=== PATIENT | female | born 1970 | race Hispanic/Latino ===

== ENCOUNTER 2021-01-17 06:35 | Emergency (ER) | payer BC ==
[~2021-01-17] VITALS: Ht 162.6 cm; Wt 97.5 kg
[2021-01-17 06:37] VITALS: BP 166/83
[2021-01-17 08:24] LABS: ABG BASE EXCESS 1.7 mmol/L (-2.0-3.0); ABG HCO3 23.9 mmol/L (21.0-28.0); ABG OXYGEN SATURATION 98.7 % (95.0-99.0); ABG PCO2 31 mmHg (32-45)
[2021-01-17 08:48] LABS: BASOPHILS % (AUTO) 0.5 % (0.0-5.0); EOSINOPHILS % (AUTO) 0.3 % (0.0-8.0); HEMATOCRIT 41.1 % (36-48); LYMPHOCYTES % (AUTO) 6.7 % (21.0-51.0); MEAN CORPUSCULAR HEMOGLOBIN 30.4 pg (27.0-33.0); MEAN CORPUSCULAR HGB CONC 33.1 g/dL (32.0-36.0); MEAN CORPUSCULAR VOLUME 91.7 fL (79-99); MONOCYTES % (AUTO) 9.5 % (3.0-13.0); NEUTROPHILS % (AUTO) 82.5 % (40.0-77.0); PLATELET COUNT (AUTO) 207 K/uL (130-400); RED BLOOD CELL COUNT(AUTO) 4.48 MIL/uL (4.00-5.50); RED CELL DISTRIBUTION WIDTH 12.2 % (11.0-15.5); WHITE BLOOD COUNT (AUTO) 6.1 K/uL (4.8-10.8)
[2021-01-17] MEDS ORDERED: AZIT500T2 PO (09:07)
[2021-01-17] MEDS ORDERED: ASPI-1012 PO (09:07)
[2021-01-17] MEDS ORDERED: BUDE8.435 NS (09:07)
[2021-01-17] MEDS ORDERED: ALBUHFA IH (09:07)
[2021-01-17] MEDS ORDERED: PRED20TA3 PO (09:07)
[2021-01-17 09:09] LABS: INR 1.04 (0.85-1.15); PROTHROMBIN TIME 11.3 SEC (9.6-11.6)
[2021-01-17 09:10] LABS: PARTIAL THROMBOPLASTIN TIME 31.6 SEC (26.3-35.5)
[2021-01-17 09:13] LABS: ALBUMIN 3.8 g/dL (3.5-5.0); BILIRUBIN,TOTAL 0.4 mg/dL (0.2-1.0); CREATININE 0.8 mg/dL (0.5-1.5); POTASSIUM 3.4 mmol/L (3.5-5.1); TOTAL PROTEIN, SERUM 7.6 g/dL (6.0-8.3)
== END 2021-01-17 09:27 | disposition home or self-care (01) ==
LOC: EDH 06:35
DX: U07.1 COVID-19 (principal); J06.9 Acute upper respiratory infection, unspecified
CPT/HCPCS: 36415; 36600; 80053; 82550; 82803; 83605; 84484; 85025; 85610; 85730; 87040 ×2; 87635; 99283; C9803